=== PATIENT | female | born 1935 | race Caucasian/White ===

== ENCOUNTER 2016-03-03 18:03 | Emergency (ER) | payer MEDICARE, OTHER ==
[~2016-03-03] VITALS: Wt 80.0 kg
[2016-03-03] MEDS ORDERED: SOD CHLORIDE 0.9% 1,000 ML IV STA (18:21)
[2016-03-03] MEDS ORDERED: METF1000 PO (18:23)
[2016-03-03 19:10] LABS: BASOPHIL # 0.1 10^3/ul (0.0-0.1); EOSINOPHILS # 0.3 10^3/ul (0.0-0.5); EOSINOPHILS % 2.8 % (0.0-7.0); HEMATOCRIT 35.5 % (37.0-47.0); LYMPHOCYTES # 2.9 10^3/ul (0.8-2.9); LYMPHOCYTES % 24.6 % (15.0-51.0); MEAN CORPUSCULAR HEMOGLOBIN 28.7 pg (29.0-33.0); MEAN CORPUSCULAR HGB CONC 33.8 g/dl (32.0-37.0); MEAN CORPUSCULAR VOLUME 84.8 fl (82.0-101.0); MEAN PLATELET VOLUME 8.8 fl (7.4-10.4); MONOCYTE # 0.7 10^3/ul (0.3-0.9); MONOCYTES % 6.2 % (0.0-11.0); NEUTROPHIL # 7.7 10^3/ul (1.6-7.5); NEUTROPHILS % 65.4 % (39.0-77.0); PLATELET COUNT 355 10^3/UL (140-440); RED BLOOD COUNT 4.19 10^6/ul (4.20-5.40); RED CELL DISTRIBUTION WIDTH 13.7 % (11.5-14.5); UNCORRECTED WBC 11.8 10^3/ul (4.8-10.8); WHITE BLOOD COUNT 11.8 10^3/ul (4.8-10.8)
[2016-03-03 19:11] LABS: CONDITION 1
[2016-03-03 19:19] LABS: ALBUMIN 4.2 g/dl (3.3-4.9)
[2016-03-03 19:20] LABS: POTASSIUM 4.2 mmol/L (3.5-5.1)
[2016-03-03 19:22] LABS: ALBUMIN/GLOBULIN RATIO 1.05; BILIRUBIN,INDIRECT 0.4 mg/dl (0-1.1); BILIRUBIN,TOTAL 0.4 mg/dl (0.2-1.3); CALCIUM 9.7 mg/dl (8.4-10.2); CREATININE 1.04 mg/dl (0.44-1.00); TOTAL PROTEIN 8.2 g/dl (6.1-8.1)
[2016-03-03 19:42] LABS: ADD UMIC YES; URINE BILIRUBIN (Dip) NEGATIVE (NEGATIVE); URINE BLOOD (Dip) TRACE (NEGATIVE); URINE COLOR LT. YELLOW (YELLOW); URINE GLUCOSE (Dip) >=1000 % (NEGATIVE); URINE KETONES (Dip) NEGATIVE (NEGATIVE); URINE LEUKOCYTE ESTERASE (Dip) 1+ (NEGATIVE); URINE NITRITE (Dip) POSITIVE (NEGATIVE); URINE TOTAL PROTEIN (Dip) 1+ (NEGATIVE); URINE UROBILINOGEN (Dip) 0.2 E.U./dL (0.1-1.0)
[2016-03-03 20:23] LABS: BACTERIA,URINE MANY; SQUAMOUS EPITHELIAL CELL,UR FEW; URINE RBCS 0-2 /HPF (0)
[2016-03-03] MEDS ORDERED: SOD CHLORIDE 0.9% 1,000 ML IV ONE (21:00)
[2016-03-03] MEDS ORDERED: INSULIN LISPRO 100 UNIT/ML VIAL SC STA (21:27)
[2016-03-03] MEDS ORDERED: glipiZIDE 10 MG TAB PO ONE (21:30)
[2016-03-03] MEDS ORDERED: CEFTRIAXONE 1 GM/50 ML (PMX) 50 ML IVPB ONE (21:30)
[2016-03-03] MEDS ORDERED: INSULIN ASPART [NOVOLOG] 3 ML PEN SC SCH (22:00)
[2016-03-03] MEDS ORDERED: GLIP-95 PO (22:00)
[2016-03-03] MEDS ORDERED: CIPR500T4 PO (22:00)
--- NOTE | 2016-03-03 22:18 | ERD ---
ER Documentation Chief Complaint Date/Time DATE: 03/03/16 TIME: 22:14 Chief Complaint ELEVATED BLOOD SUGAR RADHA Hernández IN [place] 72-year-old female is brought in by her family for having a very high blood sugar at home. She is also felt kind of jittery and shaky for the last couple of days. Denies chest pain shortness of breath nausea vomiting abdominal pain. She has normal mental status and no lightheadedness. Family states that the patient has 1 of her 2 diabetes medications with they cannot remember what the other one is. They have been out for a few days. I believe that is why her sugar may be high and that is why she feels a little jittery. ROS All systems reviewed and are negative except as per history of present illness. Medications Home Meds Active Scripts Ciprofloxacin Hcl* (Ciprofloxacin Hcl*) 500 Mg Tablet, 500 MG PO BID, #14 TAB Prov:NILDA EASON DO 03/03/16 Glipizide* (Glipizide*) 10 Mg Tablet, 10 MG PO AC BREAKFAST, #30 TAB Prov:NILDA EASON DO 03/03/16 Reported Medications Metformin Hcl* (Metformin Hcl*) 1,000 Mg Tablet, 1000 MG PO WITH BREAKFAST DINNE , #30 TAB 03/03/16 Allergies Allergies: Coded Allergies: No Known Allergy (Unverified , 03/03/16) PMhx/Soc History of Surgery: No Anesthesia Reaction: No Hx Neurological Disorder: No Hx Respiratory Disorders: No Hx Cardiac Disorders: Yes (HTN, HYPERLIPIDS) Hx Psychiatric Problems: No Hx Miscellaneous Medical Probl: Yes (DM) Hx Alcohol Use: No Hx Substance Use: No Hx Tobacco Use: No Smoking Status: Never smoker Physical Exam Vitals Vital Signs Date Time Temp Pulse Resp B/P Pulse Ox O2 Delivery O2 Flow Rate FiO2 03/03/16 21:20 84 16 154/71 99 Room Air 03/03/16 18:13 98.0 89 16 162/77 99 Physical Exam Const: [] No distress Head: Atraumatic Eyes: Normal Conjunctiva ENT: Normal External Ears, Nose and Mouth. Neck: Full range of motion..~ No meningismus. Resp: Clear to auscultation bilaterally Cardio: Regular rate and rhythm, no murmurs Abd: Soft, non tender, non distended. Normal bowel sounds Skin: No petechiae or rashes Back: No midline or flank tenderness Ext: No cyanosis, or edema Neur: Awake and alert and oriented 3, no focal deficits Psych: Normal Mood and Affect Result Diagram: 03/03/16182903/03/161829 Results 24 hrs Laboratory Tests Test 03/03/16 18:13 03/03/16 18:30 03/03/16 19:20 03/03/16 20:16 Bedside Glucose 482mg/dL 371mg/dL Alanine Aminotransferase (ALT/SGPT) 23IU/L Albumin 4.2g/dl Albumin/Globulin Ratio 1.05 Alkaline Phosphatase 167IU/L Anion Gap 19 Aspartate Amino Transf (AST/SGOT) 16IU/L Basophils # 0.110^3/ul Basophils % 1.0% Blood Morphology Comment Blood Urea Nitrogen 28mg/dl Calcium Level 9.7mg/dl Carbon Dioxide Level 26mmol/L Chloride Level 95mmol/L Creatinine 1.04mg/dl Direct Bilirubin 0.00mg/dl Eosinophils # 0.310^3/ul Eosinophils % 2.8% Globulin 4.00g/dl Glucose Level 451mg/dl Hematocrit 35.5% Hemoglobin 12.0g/dl Indirect Bilirubin 0.4mg/dl Lipase 70U/L Lymphocytes # 2.910^3/ul Lymphocytes % 24.6% Mean Corpuscular Hemoglobin 28.7pg Mean Corpuscular Hemoglobin Concent 33.8g/dl Mean Corpuscular Volume 84.8fl Mean Platelet Volume 8.8fl Monocytes # 0.710^3/ul Monocytes % 6.2% Neutrophils # 7.710^3/ul Neutrophils % 65.4% Nucleated Red Blood Cells # 0.010^3/ul Nucleated Red Blood Cells % 0.0/100WBC Platelet Count 19180^3/UL Potassium Level 4.2mmol/L Red Blood Count 4.1910^6/ul Red Cell Distribution Width 13.7% Sodium Level 136mmol/L Total Bilirubin 0.4mg/dl Total Protein 8.2g/dl White Blood Count 11.810^3/ul Urine Bacteria MANY Urine Bilirubin NEGATIVE Urine Clarity SLIGHTLY CLOUDY Urine Color LT. YELLOW Urine Glucose >=1000% Urine Hemoglobin TRACE Urine Ketones NEGATIVE Urine Leukocyte Esterase 1+ Urine Microscopic RBC 0-2/HPF Urine Microscopic WBC 10-25/HPF Urine Nitrite POSITIVE Urine Specific Russell 1.015 Urine Squamous Epithelial Cells FEW Urine Total Protein 1+ Urine Urobilinogen 0.2 E.U./dL Urine Yeast OCCASIONAL Urine pH 6.0 Test 03/03/16 21:18 Bedside Glucose 362mg/dL Current Medications Medications (Trade) Dose Ordered Sig/Andrés Route PRN Reason Start Time Stop Time Status Last Admin Dose Admin Sodium Chloride 1,000 ml @ 1,000 mls/hr Q1H STAT IV 03/03/16 18:21 03/03/16 19:20 DC 03/03/16 18:46 Sodium Chloride (NS) 1,000 ml @ 1,000 mls/hr Q1H ONCE IV 03/03/16 21:00 03/03/16 21:59 DC 03/03/16 20:45 Glipizide 10 mg 10 mg ONCE ONCE PO 03/03/16 21:30 03/03/16 21:31 DC 03/03/16 21:06 Ceftriaxone Sodium (Rocephin) 50 ml @ 100 mls/hr ONCE ONCE IVPB 03/03/16 21:30 03/03/16 21:59 DC 03/03/16 21:53 Insulin Human Lispro (Humalog) 4 unit ONCE STAT SC 03/03/16 21:27 03/03/16 21:28 UNV Insulin Aspart (Novolog Insulin Pen) 4 unit ONCE SC 03/03/16 22:00 03/03/16 23:30 03/03/16 21:54 Procedures/MDM Patient with urinary tract infection likely causing resistant hyperglycemia as well as being out of her medication. I called [facility] pharmacy and was able to find out that the other medication with glipizide 10 mg daily. Patient was hydrated 2 L of normal saline and given 4 mg of IM lispro in the emergency room. Also provided with a glipizide tablet. She was given 1 g of Rocephin when her urine came back elevated. She has mild leukocytosis but was feeling much better after the 2 L of fluid and states that she had no symptoms. Discharge along with family with instructions to see her primary care doctor within the next 2 days. Urine culture was also obtained. I am discharging her with Cipro and her glipizide prescription 30 day supply. Departure Diagnosis: Primary Impression: UTI (urinary tract infection) Additional Impression: Hyperglycemia Condition: Stable Patient Instructions: Hyperglycemia (High Blood Sugar), Understanding Urinary Tract Infections (UTIs) Additional Instructions: Llame al doctor MAANA y sammi jimmy KARLA PARA DENTRO DE 2-3 DRAPER.Dgale a la secretaria que nosotros le instruimos hacer esta karla.Avise o llame si chaudhari condicin se empeora antes de la karla. Regresa aqui si peor o no mejor. NILDA EASON DO Mar 03, 2016 22:18
[2016-03-03 22:41] VITALS: BP 179/82; PULSE 73; RESP 16; TEMP 98
== END 2016-03-03 22:42 | disposition home or self-care (01) ==
LOC: E/R 18:03
DX: N39.0 Urinary tract infection, site not specified (principal); Z79.84 Long term (current) use of oral hypoglycemic drugs
CPT/HCPCS: 36415; 80053; 81001; 82962; 83690; 85025; 87086; 96372; 96374; 99284; J0696; J1815; J7030; 81003

== ENCOUNTER 2016-12-12 20:39 | Emergency (ER) | payer OTHER, MEDICARE ==
[~2016-12-12] VITALS: Ht 160 cm; Wt 73.1 kg
[~2016-12-12 20:39] MED LIST: CIPR500T4 PO; GLIP-95 PO; METF1000 PO
[2016-12-12 20:46] VITALS: Ht 160 cm; Wt 73.1 kg
[2016-12-12] MEDS ORDERED: ACETAMINOPHEN 325 MG TAB PO ONE (22:00)
--- NOTE | 2016-12-12 22:29 | RADRPT ---
PROCEDURE: XR Right Shoulder. CLINICAL INDICATION: Trauma due to a fall. Right shoulder pain. TECHNIQUE: Three views. Frontal internal rotation, frontal external rotation, and scapular Y-view . COMPARISON: No prior study is available for comparison. FINDINGS: There is no fracture or dislocation. The soft tissues are normal. Articular surfaces are intact. There is no lytic or blastic lesion. There is no radiopaque foreign body. IMPRESSION: 1. Normal images of the right shoulder. RPTAT: QQ .Yuri Packer MD, MD Date Time Electronically viewed and signed by .Yuri Packer MD, MD on 12/12/2016 22:29 .R/
--- NOTE | 2016-12-12 23:11 | RADRPT ---
PROCEDURE: CT Brain without contrast. CLINICAL INDICATION: Trauma. Pain. TECHNIQUE: Serial axial computed tomographic images of the brain was performed on a multidetector CT scanner from the skull base through the vertex without contrast. CTDlvol = 45 mGy and DLP = 720 m Gy-cm. One of the following 3 dose reduction techniques were used: Automated exposure control; adju stment of the mA and/or kV according to patient size; or use of iterative reconstruction technique. COMPARISON: None. FINDINGS: There is no fracture. There is age appropriate central and peripheral atrophy. There is no midline shift. There is no acute stroke. There is moderate degree of supratentorial periventricular and s ubcortical white matter hypodensities. No acute intracranial hemorrhage or abnormal extra-axial flu id collection. Visualized paranasal sinuses are clear. IMPRESSION: 1. No fracture. 2. No acute post-traumatic intracranial abnormality. 3. Nonspecific white matter changes most commonly seen with small vessel disease. RPTAT: HMVK .Joshua Colon MD, Date Time Electronically viewed and signed by .Joshua Colon MD, MD on 12/12/2016 23:11 .K/
--- NOTE | 2016-12-12 23:14 | RADRPT ---
PROCEDURE: CT cervical spine without contrast CLINICAL INDICATION: Trauma. Pain. TECHNIQUE: CT scan of the cervical spine was performed on a multidetector scanner. No IV contrast was administered. Coronal and sagittal reformatted images were obtained from the axial source imag es. Images were reviewed on a high-resolution PACS workstation. Exam CTDlvol = 19 mGy and DLP = 345 mGy-cm. One of the following 3 dose reduction techniques were used: Automated exposure control; adjustment of the mA and/or kV according to patient size; or use of iterative reconstruction techniq ue. COMPARISON: None available FINDINGS: There is no fracture. Alignment is maintained. There is no spondylolisthesis. There is maintenanc e of height of the vertebral bodies. Mild multilevel degenerative changes are present, greatest at C4-5. Bone mineralization is within normal limits. Prevertebral soft tissues are unremarkable. T here are multiple bilateral posterior triangle sub centimeter lymph nodes. IMPRESSION: 1. No acute post traumatic abnormality. 2. Mild degenerative changes. RPTAT: MVK .Joshua Colon MD, Date Time Electronically viewed and signed by .Joshua Colon MD, MD on 12/12/2016 23:13 .K/
--- NOTE | 2016-12-12 23:22 | RADRPT ---
PROCEDURE: CT scan facial bones CLINICAL INDICATION: Trauma. Pain. TECHNIQUE: CT scan of the facial bones and orbits was performed on a multidetector CT scanner. Co memo and sagittal reformatted images were obtained from the axial source images. Exam CTDlvol = 29 mGy and DLP = 574 Gy-cm. One of the following 3 dose reduction techniques were used: Automated exp osure control; adjustment of the mA and/or kV according to patient size; or use of iterative reconst ruction technique. COMPARISON: None. FINDINGS: The facial bones and mandible are intact. No fracture is identified. The carbajal of the orbits are i ntact. The globes are intact. There is no intraorbital hematoma or infiltration. The extraocular m uscles and optic nerve sheath complex sees are unremarkable. Nasal septum is midline. The zygomati c arches are intact. There is minimal mucosal thickening. There is no air-fluid level. IMPRESSION: No acute abnormality. RPTAT: HMVK .Joshua Colon MD, MD Date Time Electronically viewed and signed by .Joshua Colon MD, on 12/12/2016 23:22 .K/
[2016-12-12] MEDS ORDERED: ACET325T33 PO (23:34)
--- NOTE | 2016-12-12 23:40 | ERD ---
ER Documentation Chief Complaint Chief Complaint sp trip and fall 3 days ago, right shoulder pain HPI Patient is a 81-year-old female presenting to the emergency department with complaints of fall which occurred yesterday. The patient fell onto her face and chipped her tooth. The patient is not on any blood thinners. She is brought in by her family. The fall was unwitnessed. Patient currently complains of right shoulder pain and neck pain. She denies loss of consciousness, nausea, vomiting, or other symptoms currently. ROS All systems reviewed and are negative except as per history of present illness. Medications Home Meds Active Scripts Acetaminophen* (Tylenol*) 325 Mg Tablet, 2 TAB PO Q6 Y for PAIN AND OR ELEVATED TEMP, #20 TAB Prov:MARINA BAH PA-C 12/12/16 Ciprofloxacin Hcl* (Ciprofloxacin Hcl*) 500 Mg Tablet, 500 MG PO BID, #14 TAB Prov:NILDA EASON DO 03/03/16 Glipizide* (Glipizide*) 10 Mg Tablet, 10 MG PO AC BREAKFAST, #30 TAB Prov:NILDA EASON DO 03/03/16 Reported Medications Metformin Hcl* (Metformin Hcl*) 1,000 Mg Tablet, 1000 MG PO WITH BREAKFAST DINNE , #30 TAB 03/03/16 Allergies Allergies: Coded Allergies: No Known Allergy (Unverified , 03/03/16) PMhx/Soc History of Surgery: No Anesthesia Reaction: No Hx Neurological Disorder: No Hx Respiratory Disorders: No Hx Cardiac Disorders: Yes (HTN) Hx Psychiatric Problems: No Hx Miscellaneous Medical Probl: Yes (DM, OSTEOPOROSIS) Hx Alcohol Use: No Hx Substance Use: No Hx Tobacco Use: No Smoking Status: Never smoker Physical Exam Vitals Vital Signs Date Time Temp Pulse Resp B/P Pulse Ox O2 Delivery O2 Flow Rate FiO2 12/12/16 20:46 97.8 82 20 176/80 97 Physical Exam Const: Nontoxic, well-appearing female in no acute distress. Head: Atraumatic Eyes: Normal Conjunctiva ENT: Normal External Ears, Nose and Mouth. Neck: Full range of motion..~ No meningismus. Resp: Clear to auscultation bilaterally Cardio: Regular rate and rhythm, no murmurs Skin: No petechiae or rashes Back: No midline or flank tenderness Ext: No cyanosis, or edema mild subjective tenderness of the right shoulder. She is able to abduct and adduct the shoulder. 2+ radial pulses noted. Neur: Awake and alert Psych: Normal Mood and Affect Results 24 hrs Current Medications Medications (Trade) Dose Ordered Sig/Andrés Route PRN Reason Start Time Stop Time Status Last Admin Dose Admin Acetaminophen (Tylenol Tab) 650 mg ONCE ONCE PO 12/12/16 22:00 12/12/16 22:01 DC 12/12/16 22:01 Procedures/MDM Patient is a 81-year-old female presenting to the emergency department after fall which occurred yesterday. All imaging studies were negative for acute abnormalities. Patient was given Tylenol in the department she is feeling improved prior to discharge. The patient stable for discharge with a prescription for Tylenol. Patient and family agreed with the discharge plan a diagnosis. No evidence of life-threatening pathology at time of discharge. Pt/family in agreement with discharge plan/diagnosis. Pt/family advised to return immediately with any new or worsening symptoms. Follow-up with primary care physician within the next 1-2 days. Disclaimer: Inadvertent spelling and grammatical errors are likely due to EHR/ dictation software use and do not reflect on the overall quality of patient care. Also, please note that the electronic time recorded on this note does not necessarily reflect the actual time of the patient encounter. PROCEDURE: CT Brain without contrast. CLINICAL INDICATION: Trauma. Pain. TECHNIQUE: Serial axial computed tomographic images of the brain was performed on a multidetector CT scanner from the skull base through the vertex without contrast. CTDlvol = 45 mGy and DLP = 720 mGy-cm. One of the following 3 dose reduction techniques were used: Automated exposure control; adjustment of the mA and/or kV according to patient size; or use of iterative reconstruction technique. COMPARISON: None. FINDINGS: There is no fracture. There is age appropriate central and peripheral atrophy. There is no midline shift. There is no acute stroke. There is moderate degree of supratentorial periventricular and subcortical white matter hypodensities. No acute intracranial hemorrhage or abnormal extra-axial fluid collection. Visualized paranasal sinuses are clear. IMPRESSION: 1. No fracture. 2. No acute post-traumatic intracranial abnormality. 3. Nonspecific white matter changes most commonly seen with small vessel disease. RPTAT: HMVK .Joshua Colon MD, MD Date Time Electronically viewed and signed by .Joshua Colon MD, MD on 12/12/2016 23:11 PROCEDURE: CT cervical spine without contrast CLINICAL INDICATION: Trauma. Pain. TECHNIQUE: CT scan of the cervical spine was performed on a multidetector scanner. No IV contrast was administered. Coronal and sagittal reformatted images were obtained from the axial source images. Images were reviewed on a high-resolution PACS workstation. Exam CTDlvol = 19 mGy and DLP = 345 mGy-cm. One of the following 3 dose reduction techniques were used: Automated exposure control; adjustment of the mA and/or kV according to patient size; or use of iterative reconstruction technique. COMPARISON: None available FINDINGS: There is no fracture. Alignment is maintained. There is no spondylolisthesis. There is maintenance of height of the vertebral bodies. Mild multilevel degenerative changes are present, greatest at C4-5. Bone mineralization is within normal limits. Prevertebral soft tissues are unremarkable. There are multiple bilateral posterior triangle sub centimeter lymph nodes. IMPRESSION: 1. No acute post traumatic abnormality. 2. Mild degenerative changes. RPTAT: MVK .Joshua Colon MD, MD Date Time Electronically viewed and signed by .Joshua Colon MD, MD on 12/12/2016 23:13 PROCEDURE: XR Right Shoulder. CLINICAL INDICATION: Trauma due to a fall. Right shoulder pain. TECHNIQUE: Three views. Frontal internal rotation, frontal external rotation , and scapular Y-view. COMPARISON: No prior study is available for comparison. FINDINGS: There is no fracture or dislocation. The soft tissues are normal. Articular surfaces are intact. There is no lytic or blastic lesion. There is no radiopaque foreign body. IMPRESSION: 1. Normal images of the right shoulder. RPTAT: QQ .Yuri Packer MD, MD Date Time Electronically viewed and signed by .Yuri Packer MD, MD on 12/12/2016 22:29 PROCEDURE: CT Brain without contrast. CLINICAL INDICATION: Trauma. Pain. TECHNIQUE: Serial axial computed tomographic images of the brain was performed on a multidetector CT scanner from the skull base through the vertex without contrast. CTDlvol = 45 mGy and DLP = 720 mGy-cm. One of the following 3 dose reduction techniques were used: Automated exposure control; adjustment of the mA and/or kV according to patient size; or use of iterative reconstruction technique. COMPARISON: None. FINDINGS: There is no fracture. There is age appropriate central and peripheral atrophy. There is no midline shift. There is no acute stroke. There is moderate degree of supratentorial periventricular and subcortical white matter hypodensities. No acute intracranial hemorrhage or abnormal extra-axial fluid collection. Visualized paranasal sinuses are clear. IMPRESSION: 1. No fracture. 2. No acute post-traumatic intracranial abnormality. 3. Nonspecific white matter changes most commonly seen with small vessel disease. RPTAT: HMVK .Joshua Colon MD, MD Date Time Electronically viewed and signed by .Joshua Colon MD, on 12/12/2016 23:11 PROCEDURE: CT cervical spine without contrast CLINICAL INDICATION: Trauma. Pain. TECHNIQUE: CT scan of the cervical spine was performed on a multidetector scanner. No IV contrast was administered. Coronal and sagittal reformatted images were obtained from the axial source images. Images were reviewed on a high-resolution PACS workstation. Exam CTDlvol = 19 mGy and DLP = 345 mGy-cm. One of the following 3 dose reduction techniques were used: Automated exposure control; adjustment of the mA and/or kV according to patient size; or use of iterative reconstruction technique. COMPARISON: None available FINDINGS: There is no fracture. Alignment is maintained. There is no spondylolisthesis. There is maintenance of height of the vertebral bodies. Mild multilevel degenerative changes are present, greatest at C4-5. Bone mineralization is within normal limits. Prevertebral soft tissues are unremarkable. There are multiple bilateral posterior triangle sub centimeter lymph nodes. IMPRESSION: 1. No acute post traumatic abnormality. 2. Mild degenerative changes. RPTAT: MVK .Joshua Colon MD, MD Date Time Electronically viewed and signed by .Joshua Colon MD, MD on 12/12/2016 23:13 PROCEDURE: CT scan facial bones CLINICAL INDICATION: Trauma. Pain. TECHNIQUE: CT scan of the facial bones and orbits was performed on a multidetector CT scanner. Coronal and sagittal reformatted images were obtained from the axial source images. Exam CTDlvol = 29 mGy and DLP = 574 Gy- cm. One of the following 3 dose reduction techniques were used: Automated exposure control; adjustment of the mA and/or kV according to patient size; or use of iterative reconstruction technique. COMPARISON: None. FINDINGS: The facial bones and mandible are intact. No fracture is identified. The carbajal of the orbits are intact. The globes are intact. There is no intraorbital hematoma or infiltration. The extraocular muscles and optic nerve sheath complex sees are unremarkable. Nasal septum is midline. The zygomatic arches are intact. There is minimal mucosal thickening. There is no air- fluid level. IMPRESSION: No acute abnormality. RPTAT: HMVK .Joshua Colon MD, MD Date Time Electronically viewed and signed by .Joshua Colon MD, MD on 12/12/2016 23:22 PROCEDURE: XR Right Shoulder. CLINICAL INDICATION: Trauma due to a fall. Right shoulder pain. TECHNIQUE: Three views. Frontal internal rotation, frontal external rotation , and scapular Y-view. COMPARISON: No prior study is available for comparison. FINDINGS: There is no fracture or dislocation. The soft tissues are normal. Articular surfaces are intact. There is no lytic or blastic lesion. There is no radiopaque foreign body. IMPRESSION: 1. Normal images of the right shoulder. RPTAT: QQ .Yuri Packer MD, MD Date Time Electronically viewed and signed by .Yuri Packer MD, MD on 12/12/2016 22:29 Departure Diagnosis: Primary Impression: Fall with no significant injury Encounter type: initial encounter Qualified Code: W19.XXXA - Fall with no significant injury, initial encounter Condition: Fair Patient Instructions: Fall Prevention Additional Instructions: No mas mejor en 2-3 araon, regresar. Mas peor en 24 horas, regresear rapidamente. Ir a doctor primario en 1-2 aaron. Usar instrucciones cuando anayeli medicamento. MARINA BAH PA-C Dec 12, 2016 23:40
== END 2016-12-12 23:53 | disposition home or self-care (01) ==
LOC: FTE 20:39
DX: M25.511 Pain in right shoulder (principal); E11.9 Type 2 diabetes mellitus without complications; I10 Essential (primary) hypertension; R93.0 Abnormal findings on diagnostic imaging of skull and head, not elsewhere classified; Z79.84 Long term (current) use of oral hypoglycemic drugs
CPT/HCPCS: 70450; 70486; 72125; 73030; Z7502; Z7610